=== PATIENT | male | born 1960 | race African-American/Black ===

== ENCOUNTER 2019-06-29 13:29 | Inpatient (IN) | payer MEDICAID, OTHER ==
[~2019-06-29] VITALS: Ht 175.3 cm; Wt 54.4 kg
[2019-06-29] MEDS ORDERED: SODIUM CHLORIDE 0.9% 1000ML BAG (SEPSIS BOLUS) IV ONE (14:15)
[2019-06-29] MEDS ORDERED: PIPERACILLIN/TAZ 3.375G PREMIX 50 ML IV ONE (14:30)
[2019-06-29] MEDS ORDERED: VANCOMYCIN 1 G PREMIX 200 ML IV ONE (14:30)
[2019-06-29 14:54] LABS: HEMATOCRIT. 36.8 % (42.0-52.0); HEMOGLOBIN. 11.9 g/dL (14.0-18.0); LYMPHOCYTES % 7.5 % (20.0-50.0); MEAN CORPUSCULAR HEMOGLOBIN 30.1 pg (28.0-32.0); MEAN CORPUSCULAR VOLUME 92.9 fL (80.0-94.0); MEAN PLATELET VOLUME 8.1 fl (7.4-10.4); MONOCYTES % 3.9 % (2.0-8.0); NEUTROPHILS % 88.6 % (40.0-76.0); PLATELET 137 x1000/uL (130-400); RED BLOOD CELL COUNT 3.97 mill/uL (4.7-6.1); RED CELL DISTRIBUTION WIDTH 18.7 % (11.6-14.6)
[2019-06-29 15:02] LABS: INR 1.1; PROTHROMBIN TIME 11.8 sec (9.6-11.0)
[2019-06-29 15:07] LABS: CHLORIDE 121 mEq/L (98-107)
[2019-06-29] MEDS ORDERED: SODIUM CHLORIDE 0.45% 1,000 ML IV ONE (15:45)
[2019-06-29] MEDS ORDERED: DEXTROSE 5% WATER 1,000 ML IV SCH (17:38)
[2019-06-29 17:45] LABS: CLARITY URINE CLEAR (CLEAR); COLOR URINE YELLOW (YELLOW); KETONES URINE NEGATIVE (NEGATIVE); LEUKOCYTE ESTERASE URINE NEGATIVE (NEGATIVE); NITRITE URINE NEGATIVE (NEGATIVE); OCCULT BLOOD URINE NEGATIVE (NEGATIVE); PROTEIN URINE NEGATIVE (NEGATIVE); SPECIFIC GRAVITY URINE 1.015 (1.005-1.030); UROBILINOGEN URINE 0.2 E.U./dL (0.2-1.0)
[2019-06-29] MEDS ORDERED: ONDANSETRON HCL 4MG/2ML INJ IV PRN (17:45)
[2019-06-29] MEDS ORDERED: PIPERACILLIN/TAZ 3.375G PREMIX 50 ML IV SCH (17:45)
[2019-06-29] MEDS ORDERED: IPRATROPIUM/ALBUTEROL 0.5-3(2.5)MG/3ML NEB HHN PRN (17:45)
[2019-06-29] MEDS ORDERED: CLONIDINE 0.1MG TABLET PO PRN (17:45)
[2019-06-29] MEDS ORDERED: DIPHENHYDRAMINE 50MG/ML VIAL IV PRN (17:45)
[2019-06-29 18:10] VITALS: BP 96/81
[2019-06-29 18:35] LABS: PHOSPHORUS 2.7 mg/dL (2.5-4.9)
[2019-06-29 19:33] VITALS: BP 106/88
[2019-06-29] MEDS ORDERED: DEXTROSE 50% WATER 50ML SYRINGE IV PRN (20:15)
[2019-06-29 20:50] VITALS: BP 95/69
[2019-06-29] MEDS: INSULIN LISPRO 100 UNITS/ML SUBCUT SCH (21:00)
[2019-06-29] MEDS: BLOOD SUGAR DIAGNOSTIC STRIP TEST SCH (21:26)
[2019-06-29] MEDS: POTASSIUM CHLORIDE INJ 20 MEQ in DEXT 5%/0.2% NACL 1,000 ML IV SCH (21:27)
[2019-06-29] MEDS: MORPHINE SULFATE 2 MG/ML CPJ (NOT FOR IM USE) IV PRN (21:29)
[2019-06-29 21:50] VITALS: BP 115/77
[2019-06-29] MEDS: PIPERACILLIN/TAZOBACTAM 3.375 G in DEXT 5% WATER 100 ML IV SCH (22:40)
[2019-06-29 23:15] VITALS: BP 115/77
[2019-06-29 23:50] VITALS: BP 117/81
[2019-06-30] VITALS (11 sets, daily range): BP systolic 108–135; BP diastolic 62–99
[2019-06-30] MEDS ORDERED: METH5TAB PO (03:42)
[2019-06-30] MEDS ORDERED: GABA300C PO (03:42)
[2019-06-30] MEDS: PIPERACILLIN/TAZOBACTAM 3.375 G in DEXT 5% WATER 100 ML IV SCH ×3 (05:45→21:23)
[2019-06-30] MEDS: BLOOD SUGAR DIAGNOSTIC STRIP TEST SCH ×4 (06:24→21:00)
[2019-06-30] MEDS: POTASSIUM CHLORIDE INJ 20 MEQ in DEXT 5%/0.2% NACL 1,000 ML IV SCH (06:38)
[2019-06-30 06:43] LABS: HEMOGLOBIN. 10.4 g/dL (14.0-18.0); MEAN CORPUSCULAR HEMOGLOBIN 30.2 pg (28.0-32.0); MEAN CORPUSCULAR VOLUME 92.9 fL (80.0-94.0); MEAN PLATELET VOLUME 8.4 fl (7.4-10.4); PLATELET 117 x1000/uL (130-400); RED BLOOD CELL COUNT 3.45 mill/uL (4.7-6.1); RED CELL DISTRIBUTION WIDTH 18.6 % (11.6-14.6)
[2019-06-30 06:47] LABS: CHLORIDE 122 mEq/L (98-107)
[2019-06-30 06:55] LABS: PHOSPHORUS 2.4 mg/dL (2.5-4.9)
[2019-06-30 06:57] LABS: LDL CHOLESTEROL 81 mg/dL (5-100)
[2019-06-30 06:58] LABS: HDL CHOLESTEROL 59 mg/dL (40-59)
[2019-06-30] MEDS: MORPHINE SULFATE 2 MG/ML CPJ (NOT FOR IM USE) IV PRN ×3 (08:05→21:22)
[2019-06-30] MEDS: INSULIN LISPRO 100 UNITS/ML SUBCUT SCH ×4 (08:07→21:00)
[2019-06-30] MEDS ORDERED: ENOXAPARIN 40MG/0.4ML SYR SUBCUT SCH (09:00)
[2019-06-30 10:16] LABS: PLATELET ESTIMATE DECREASED
[2019-06-30] MEDS: VANCOMYCIN 750 MG in DEXT 5% WATER 250 ML IV SCH (10:23)
[2019-06-30] MEDS ORDERED: PAMIDRONATE DISODIUM IV SCH (13:00)
[2019-06-30] MEDS ORDERED: WATER IV SCH (13:00)
[2019-06-30] MEDS ORDERED: DEXT 5% IV SCH (13:00)
[2019-06-30] MEDS ORDERED: POTASSIUM CHLORIDE INJ 20 MEQ in DEXT 5%/0.2% NACL 1,000 ML IV SCH (13:00)
[2019-07-01] VITALS (13 sets, daily range): BP systolic 106–121; BP diastolic 54–72
[2019-07-01] MEDS: POTASSIUM CHLORIDE INJ 20 MEQ in DEXT 5%/0.2% NACL 1,000 ML IV SCH ×3 (02:10→22:16)
[2019-07-01] MEDS: VANCOMYCIN 750 MG in DEXT 5% WATER 250 ML IV SCH ×2 (02:22→21:03)
[2019-07-01] MEDS: PIPERACILLIN/TAZOBACTAM 3.375 G in DEXT 5% WATER 100 ML IV SCH (05:14)
[2019-07-01] MEDS: MORPHINE SULFATE 2 MG/ML CPJ (NOT FOR IM USE) IV PRN (05:15)
[2019-07-01] MEDS: BLOOD SUGAR DIAGNOSTIC STRIP TEST SCH ×4 (06:26→21:03)
[2019-07-01 06:34] LABS: HEMATOCRIT. 29.2 % (42.0-52.0); HEMOGLOBIN. 9.5 g/dL (14.0-18.0); MEAN CORPUSCULAR VOLUME 92.4 fL (80.0-94.0); MEAN PLATELET VOLUME 8.7 fl (7.4-10.4); PLATELET 88 x1000/uL (130-400); RED BLOOD CELL COUNT 3.16 mill/uL (4.7-6.1); RED CELL DISTRIBUTION WIDTH 18.1 % (11.6-14.6)
[2019-07-01] MEDS: INSULIN LISPRO 100 UNITS/ML SUBCUT SCH ×4 (07:20→21:00)
[2019-07-01 07:56] LABS: CHLORIDE 117 mEq/L (98-107)
[2019-07-01 08:05] LABS: PHOSPHORUS 1.9 mg/dL (2.5-4.9)
[2019-07-01] MEDS ORDERED: ENOXAPARIN 30MG/0.3ML SYR SUBCUT SCH (09:00)
[2019-07-01 10:06] LABS: *CREATININE RANDOM URINE 54.2 mg/dL (Not Estab.); MICROALBUMIN RANDOM URINE 14.5 ug/mL (Not Estab.)
[2019-07-01 10:33] LABS: PLATELET ESTIMATE DECREASED
[2019-07-01] MEDS: CEFEPIME 2,000 MG in DEXT 5% WATER 100 ML IV SCH (12:24)
[2019-07-01 12:35] LABS: CHLORIDE 116 mEq/L (98-107)
[2019-07-01 13:30] LABS: MEAN CORPUSCULAR HEMOGLOBIN 29.6 pg (28.0-32.0); MEAN CORPUSCULAR VOLUME 92.3 fL (80.0-94.0); MEAN PLATELET VOLUME 8.1 fl (7.4-10.4); PLATELET 76 x1000/uL (130-400); RED BLOOD CELL COUNT 3.03 mill/uL (4.7-6.1); RED CELL DISTRIBUTION WIDTH 17.9 % (11.6-14.6)
[2019-07-01 13:45] LABS: PLATELET ESTIMATE DECREASED
[2019-07-01] MEDS: IPRATROPIUM/ALBUTEROL 0.5-3(2.5)MG/3ML NEB HHN SCH (20:05)
[2019-07-02] VITALS (11 sets, daily range): BP systolic 107–131; BP diastolic 65–81
[2019-07-02] MEDS: IPRATROPIUM/ALBUTEROL 0.5-3(2.5)MG/3ML NEB HHN SCH ×2 (03:58→15:22)
[2019-07-02] MEDS: BLOOD SUGAR DIAGNOSTIC STRIP TEST SCH ×4 (06:26→21:21)
[2019-07-02] MEDS: INSULIN LISPRO 100 UNITS/ML SUBCUT SCH ×4 (07:20→21:20)
[2019-07-02 08:47] LABS: BASOPHILS % 0.1 % (0.0-2.0); EOSINOPHILS % 0.8 % (0.0-5.0); HEMATOCRIT. 28.5 % (42.0-52.0); HEMOGLOBIN. 9.3 g/dL (14.0-18.0); LYMPHOCYTES % 7.3 % (20.0-50.0); MEAN CORPUSCULAR VOLUME 91.7 fL (80.0-94.0); MEAN PLATELET VOLUME 8.7 fl (7.4-10.4); MONOCYTES % 6.1 % (2.0-8.0); NEUTROPHILS % 85.7 % (40.0-76.0); PLATELET 77 x1000/uL (130-400); RED BLOOD CELL COUNT 3.11 mill/uL (4.7-6.1); RED CELL DISTRIBUTION WIDTH 18.6 % (11.6-14.6)
[2019-07-02 08:53] LABS: CHLORIDE 112 mEq/L (98-107)
[2019-07-02] MEDS ORDERED: CALCITONIN SALMON IM SCH (09:00)
[2019-07-02] MEDS: POTASSIUM CHLORIDE INJ 20 MEQ in DEXT 5%/0.2% NACL 1,000 ML IV SCH ×2 (11:30→20:45)
[2019-07-02] MEDS: CEFEPIME 2,000 MG in DEXT 5% WATER 100 ML IV SCH (12:38)
[2019-07-02 16:31] LABS: CLARITY URINE CLEAR (CLEAR); COLOR URINE YELLOW (YELLOW); KETONES URINE NEGATIVE (NEGATIVE); LEUKOCYTE ESTERASE URINE NEGATIVE (NEGATIVE); NITRITE URINE NEGATIVE (NEGATIVE); OCCULT BLOOD URINE NEGATIVE (NEGATIVE); PH URINE 5.5 (4.5-8.0); PROTEIN URINE NEGATIVE (NEGATIVE); SPECIFIC GRAVITY URINE 1.009 (1.005-1.030); UROBILINOGEN URINE 0.2 E.U./dL (0.2-1.0)
[2019-07-02] MEDS ORDERED: SIMETHICONE 80MG TABLET CHEW PO PRN (17:30)
[2019-07-02] MEDS: PSYLLIUM SEED PACKET PO SCH (19:56)
[2019-07-03] VITALS (20 sets, daily range): BP systolic 110–144; BP diastolic 64–78
[2019-07-03] MEDS: IPRATROPIUM/ALBUTEROL 0.5-3(2.5)MG/3ML NEB HHN SCH ×3 (02:10→13:21)
[2019-07-03] MEDS: POTASSIUM CHLORIDE INJ 20 MEQ in DEXT 5%/0.2% NACL 1,000 ML IV SCH (05:57)
[2019-07-03] MEDS: BLOOD SUGAR DIAGNOSTIC STRIP TEST SCH ×4 (06:50→20:12)
[2019-07-03] MEDS: PSYLLIUM SEED PACKET PO SCH ×3 (08:36→16:14)
[2019-07-03] MEDS: INSULIN LISPRO 100 UNITS/ML SUBCUT SCH ×4 (08:46→20:12)
[2019-07-03 09:57] LABS: BASOPHILS % 0.1 % (0.0-2.0); EOSINOPHILS % 0.3 % (0.0-5.0); HEMATOCRIT. 28.2 % (42.0-52.0); HEMOGLOBIN. 9.3 g/dL (14.0-18.0); LYMPHOCYTES % 10.5 % (20.0-50.0); MEAN CORPUSCULAR HEMOGLOBIN 30.1 pg (28.0-32.0); MEAN CORPUSCULAR VOLUME 91.3 fL (80.0-94.0); MEAN PLATELET VOLUME 9.2 fl (7.4-10.4); MONOCYTES % 5.3 % (2.0-8.0); NEUTROPHILS % 83.8 % (40.0-76.0); PLATELET 83 x1000/uL (130-400); RED BLOOD CELL COUNT 3.09 mill/uL (4.7-6.1); RED CELL DISTRIBUTION WIDTH 17.8 % (11.6-14.6)
[2019-07-03 10:04] LABS: CHLORIDE 113 mEq/L (98-107)
[2019-07-03 10:28] LABS: PHOSPHORUS 0.9 mg/dL (2.5-4.9)
[2019-07-03] MEDS: CEFEPIME 2,000 MG in DEXT 5% WATER 100 ML IV SCH (12:39)
[2019-07-03] MEDS: DEXT 5%/0.2% NACL KCL 20MEQ/L 1,000 ML IV SCH (18:56)
[2019-07-03] MEDS: MIRTAZAPINE 15MG TABLET PO SCH (20:15)
[2019-07-04] VITALS (14 sets, daily range): BP systolic 104–136; BP diastolic 65–111
[2019-07-04] MEDS: DEXT 5%/0.2% NACL KCL 20MEQ/L 1,000 ML IV SCH ×3 (02:00→22:22)
[2019-07-04] MEDS: BLOOD SUGAR DIAGNOSTIC STRIP TEST SCH ×4 (05:22→21:00)
[2019-07-04 06:29] LABS: BASOPHILS % 0.1 % (0.0-2.0); EOSINOPHILS % 0.1 % (0.0-5.0); HEMATOCRIT. 30.2 % (42.0-52.0); HEMOGLOBIN. 10.1 g/dL (14.0-18.0); LYMPHOCYTES % 10.1 % (20.0-50.0); MEAN CORPUSCULAR HEMOGLOBIN 30.2 pg (28.0-32.0); MEAN CORPUSCULAR VOLUME 90.3 fL (80.0-94.0); MEAN PLATELET VOLUME 8.5 fl (7.4-10.4); MONOCYTES % 6.7 % (2.0-8.0); PLATELET 88 x1000/uL (130-400); RED BLOOD CELL COUNT 3.35 mill/uL (4.7-6.1)
[2019-07-04 06:31] LABS: CHLORIDE 116 mEq/L (98-107)
[2019-07-04 06:38] LABS: PHOSPHORUS 1.2 mg/dL (2.5-4.9)
[2019-07-04] MEDS: INSULIN LISPRO 100 UNITS/ML SUBCUT SCH ×4 (07:20→21:00)
[2019-07-04] MEDS: PSYLLIUM SEED PACKET PO SCH ×3 (09:16→16:32)
[2019-07-04] MEDS: IPRATROPIUM/ALBUTEROL 0.5-3(2.5)MG/3ML NEB HHN SCH ×2 (10:15→20:05)
[2019-07-04] MEDS: CEFEPIME 2,000 MG in DEXT 5% WATER 100 ML IV SCH (11:48)
[2019-07-04] MEDS: ACETAMINOPHEN 325MG TABLET PO PRN (20:13)
[2019-07-04] MEDS: MIRTAZAPINE 15MG TABLET PO SCH (22:22)
[2019-07-05] VITALS (12 sets, daily range): BP systolic 98–129; BP diastolic 51–78
[2019-07-05] MEDS: IPRATROPIUM/ALBUTEROL 0.5-3(2.5)MG/3ML NEB HHN SCH ×4 (01:47→20:05)
[2019-07-05 06:43] LABS: BASOPHILS % 0.2 % (0.0-2.0); EOSINOPHILS % 0.2 % (0.0-5.0); HEMOGLOBIN. 9.8 g/dL (14.0-18.0); LYMPHOCYTES % 10.2 % (20.0-50.0); MEAN CORPUSCULAR HEMOGLOBIN 30.4 pg (28.0-32.0); MEAN CORPUSCULAR VOLUME 90.5 fL (80.0-94.0); MONOCYTES % 6.6 % (2.0-8.0); NEUTROPHILS % 82.8 % (40.0-76.0); PLATELET 96 x1000/uL (130-400); RED BLOOD CELL COUNT 3.21 mill/uL (4.7-6.1); RED CELL DISTRIBUTION WIDTH 18.2 % (11.6-14.6)
[2019-07-05] MEDS: BLOOD SUGAR DIAGNOSTIC STRIP TEST SCH ×4 (06:50→21:19)
[2019-07-05 06:57] LABS: CHLORIDE 115 mEq/L (98-107)
[2019-07-05] MEDS: DEXT 5%/0.2% NACL KCL 20MEQ/L 1,000 ML IV SCH ×2 (08:00→17:49)
[2019-07-05] MEDS: PSYLLIUM SEED PACKET PO SCH ×3 (09:06→17:00)
[2019-07-05] MEDS: ACETAMINOPHEN 325MG TABLET PO PRN ×2 (09:18→21:00)
[2019-07-05] MEDS: INSULIN LISPRO 100 UNITS/ML SUBCUT SCH ×4 (09:18→21:25)
[2019-07-05] MEDS: CEFEPIME 2,000 MG in DEXT 5% WATER 100 ML IV SCH (12:01)
[2019-07-05] MEDS: MIRTAZAPINE 15MG TABLET PO SCH (20:59)
[2019-07-06] VITALS (12 sets, daily range): BP systolic 92–107; BP diastolic 64–79
[2019-07-06] MEDS: IPRATROPIUM/ALBUTEROL 0.5-3(2.5)MG/3ML NEB HHN SCH ×4 (01:56→20:40)
[2019-07-06] MEDS: DEXT 5%/0.2% NACL KCL 20MEQ/L 1,000 ML IV SCH ×2 (04:00→17:35)
[2019-07-06] MEDS: BLOOD SUGAR DIAGNOSTIC STRIP TEST SCH ×4 (06:06→21:19)
[2019-07-06] MEDS: INSULIN LISPRO 100 UNITS/ML SUBCUT SCH ×4 (08:47→21:22)
[2019-07-06] MEDS: PSYLLIUM SEED PACKET PO SCH ×4 (08:59→17:00)
[2019-07-06] MEDS: CEFEPIME 2,000 MG in DEXT 5% WATER 100 ML IV SCH (13:12)
[2019-07-06] MEDS: MIRTAZAPINE 15MG TABLET PO SCH (21:19)
[2019-07-07] VITALS (12 sets, daily range): BP systolic 88–107; BP diastolic 61–73
[2019-07-07] MEDS: DEXT 5%/0.2% NACL KCL 20MEQ/L 1,000 ML IV SCH ×2 (02:43→11:39)
[2019-07-07] MEDS: IPRATROPIUM/ALBUTEROL 0.5-3(2.5)MG/3ML NEB HHN SCH ×2 (02:50→20:01)
[2019-07-07] MEDS: INSULIN LISPRO 100 UNITS/ML SUBCUT SCH ×4 (06:41→21:16)
[2019-07-07] MEDS: BLOOD SUGAR DIAGNOSTIC STRIP TEST SCH ×4 (06:41→20:46)
[2019-07-07] MEDS: PSYLLIUM SEED PACKET PO SCH ×3 (08:41→17:00)
[2019-07-07] MEDS: DEXT 5%/0.2% NACL 1,000 ML IV SCH (15:22)
[2019-07-07] MEDS: MIRTAZAPINE 15MG TABLET PO SCH (20:46)
[2019-07-08] VITALS (13 sets, daily range): BP systolic 91–111; BP diastolic 64–81
[2019-07-08] MEDS: IPRATROPIUM/ALBUTEROL 0.5-3(2.5)MG/3ML NEB HHN SCH ×3 (01:42→22:33)
[2019-07-08 06:30] LABS: BASOPHILS % 0.1 % (0.0-2.0); EOSINOPHILS % 0.4 % (0.0-5.0); HEMATOCRIT. 24.4 % (42.0-52.0); HEMOGLOBIN. 8.2 g/dL (14.0-18.0); LYMPHOCYTES % 9.2 % (20.0-50.0); MEAN CORPUSCULAR HEMOGLOBIN 30.5 pg (28.0-32.0); MEAN CORPUSCULAR VOLUME 91.3 fL (80.0-94.0); MEAN PLATELET VOLUME 8.3 fl (7.4-10.4); MONOCYTES % 6.6 % (2.0-8.0); NEUTROPHILS % 83.7 % (40.0-76.0); PLATELET 81 x1000/uL (130-400); RED BLOOD CELL COUNT 2.68 mill/uL (4.7-6.1); RED CELL DISTRIBUTION WIDTH 17.9 % (11.6-14.6)
[2019-07-08] MEDS: BLOOD SUGAR DIAGNOSTIC STRIP TEST SCH ×4 (06:45→20:27)
[2019-07-08 07:19] LABS: CHLORIDE 112 mEq/L (98-107)
[2019-07-08 08:13] LABS: PHOSPHORUS 0.8 mg/dL (2.5-4.9)
[2019-07-08] MEDS: PSYLLIUM SEED PACKET PO SCH ×3 (08:42→16:51)
[2019-07-08] MEDS: ACETAMINOPHEN 325MG TABLET PO PRN (08:42)
[2019-07-08] MEDS: INSULIN LISPRO 100 UNITS/ML SUBCUT SCH ×4 (08:43→21:00)
[2019-07-08] MEDS ORDERED: SODIUM PHOS,M-BASIC-D-BASIC 30 MM in DEXT 5% WATER 500 ML IV SCH (10:00)
[2019-07-08] MEDS: DEXT 5%/0.2% NACL 1,000 ML IV SCH ×3 (11:36→19:45)
[2019-07-08] MEDS: MIRTAZAPINE 15MG TABLET PO SCH (20:27)
[2019-07-09] VITALS (10 sets, daily range): BP systolic 94–105; BP diastolic 62–76
[2019-07-09] MEDS: IPRATROPIUM/ALBUTEROL 0.5-3(2.5)MG/3ML NEB HHN SCH ×3 (02:42→13:24)
[2019-07-09] MEDS: ACETAMINOPHEN 325MG TABLET PO PRN (05:49)
[2019-07-09 06:32] LABS: BASOPHILS % 0.2 % (0.0-2.0); EOSINOPHILS % 0.2 % (0.0-5.0); HEMATOCRIT. 23.6 % (42.0-52.0); LYMPHOCYTES % 9.5 % (20.0-50.0); MEAN CORPUSCULAR HEMOGLOBIN 30.3 pg (28.0-32.0); MEAN CORPUSCULAR VOLUME 89.2 fL (80.0-94.0); MEAN PLATELET VOLUME 8.3 fl (7.4-10.4); MONOCYTES % 6.3 % (2.0-8.0); NEUTROPHILS % 83.8 % (40.0-76.0); PLATELET 82 x1000/uL (130-400); RED BLOOD CELL COUNT 2.65 mill/uL (4.7-6.1); RED CELL DISTRIBUTION WIDTH 17.9 % (11.6-14.6)
[2019-07-09] MEDS: BLOOD SUGAR DIAGNOSTIC STRIP TEST SCH ×2 (06:41→11:50)
[2019-07-09 06:48] LABS: CHLORIDE 110 mEq/L (98-107)
[2019-07-09 06:59] LABS: PHOSPHORUS 1.9 mg/dL (2.5-4.9)
[2019-07-09] MEDS: INSULIN LISPRO 100 UNITS/ML SUBCUT SCH ×2 (07:20→13:11)
[2019-07-09] MEDS: PSYLLIUM SEED PACKET PO SCH ×2 (09:00→13:00)
[2019-07-09] MEDS: DEXT 5%/0.2% NACL 1,000 ML IV SCH (09:48)
[2019-07-09] MEDS ORDERED: FLUT1DIS3 INH (15:14)
[2019-07-09] MEDS ORDERED: ALBU18HF2 IH (15:14)
[2019-07-09] MEDS ORDERED: POTASSIUM PHOS,M-BASIC-D-BASIC 30 MMOL in SODIUM CHLORIDE 0.9% 500 ML IV NR (17:00)
== END 2019-07-09 18:22 | disposition home or self-care (01) | DRG 720 ==
LOC: ER 13:36 → 3WST 16:40 → EDBEDREQTM 16:50 → EDBEDREQ 16:50 → ENRESERV 17:16
PROVIDERS: ADMIT Internal Medicine; ATTEND Internal Medicine
DX: A41.9 Sepsis, unspecified organism (principal); N17.0 Acute kidney failure with tubular necrosis; G62.81 Critical illness polyneuropathy; G93.41 Metabolic encephalopathy; E43 Unspecified severe protein-calorie malnutrition; J96.10 Chronic respiratory failure, unspecified whether with hypoxia or hypercapnia; R64 Cachexia; I95.9 Hypotension, unspecified; J18.9 Pneumonia, unspecified organism; C78.7 Secondary malignant neoplasm of liver and intrahepatic bile duct; E11.22 Type 2 diabetes mellitus with diabetic chronic kidney disease; E87.2 Acidosis; E83.52 Hypercalcemia; E87.0 Hyperosmolality and hypernatremia; E86.0 Dehydration; N18.9 Chronic kidney disease, unspecified; F17.200 Nicotine dependence, unspecified, uncomplicated; N40.0 Benign prostatic hyperplasia without lower urinary tract symptoms; R62.7 Adult failure to thrive; D69.6 Thrombocytopenia, unspecified; C34.90 Malignant neoplasm of unspecified part of unspecified bronchus or lung; E83.42 Hypomagnesemia; R13.10 Dysphagia, unspecified; Z51.5 Encounter for palliative care; C34.91 Malignant neoplasm of unspecified part of right bronchus or lung; D64.9 Anemia, unspecified; G89.29 Other chronic pain; Z66 Do not resuscitate; E87.8 Other disorders of electrolyte and fluid balance, not elsewhere classified; Z92.3 Personal history of irradiation; Z85.118 Personal history of other malignant neoplasm of bronchus and lung; Z68.1 Body mass index [BMI] 19.9 or less, adult; Z83.3 Family history of diabetes mellitus; Z92.21 Personal history of antineoplastic chemotherapy; Z79.899 Other long term (current) drug therapy
CPT/HCPCS: 36415; 71045; 76770; 80048; 80053; 80061; 80202; 81003; 82043; 82570; 82962; 83036; 83605; 83735; 84100; 84145; 84300; 84443; 84484; 85025; 92610; 93005; 93970; 94640; 96361; 96365; 96367; 97116; 97162; 97166; 97530; 97535; 99285; J0692; J1650; J1815; J2270; J2430; J2543; J3370; J3480; J3490; J7040; J7060

== ENCOUNTER 2019-07-15 03:23 | Inpatient (IN) | payer MEDICAID, OTHER ==
[~2019-07-15] VITALS: Ht 188 cm; Wt 53.1 kg
[~2019-07-15 03:23] MED LIST: ALBU18HF2 IH; FLUT1DIS3 INH; GABA300C PO; METH5TAB PO
[2019-07-15] MEDS ORDERED: MORPHINE SULFATE 4 MG/ML CPJ (NOT FOR IM USE) IV ONE (03:45)
[2019-07-15 04:43] LABS: HEMATOCRIT 27.5 % (42.0-52.0); MEAN CORPUSCULAR HEMOGLOBIN 30.4 pg (28.0-32.0); MEAN CORPUSCULAR VOLUME 93.5 fL (80.0-94.0); PLATELET 81 x1000/uL (130-400); RED BLOOD CELL COUNT 2.95 mill/uL (4.7-6.1); RED CELL DISTRIBUTION WIDTH 19.5 % (11.6-14.6)
[2019-07-15 04:56] LABS: CHLORIDE 119 mEq/L (98-107)
[2019-07-15] MEDS ORDERED: SODIUM CHLORIDE 0.9% 1,000 ML IV ONE (05:45)
[2019-07-15 06:30] VITALS: BP 131/90
[2019-07-15] MEDS ORDERED: GUAIFENESIN 200MG/10ML SUGAR FREE UDC PO PRN (06:45)
[2019-07-15] MEDS ORDERED: NITROGLYCERIN 0.4MG TABLET SL SL PRN (06:45)
[2019-07-15] MEDS ORDERED: CLONIDINE 0.1MG TABLET PO PRN (06:45)
[2019-07-15] MEDS ORDERED: TRAMADOL 50MG TABLET PO PRN (06:45)
[2019-07-15] MEDS ORDERED: LORAZEPAM 0.5MG TABLET PO PRN (06:45)
[2019-07-15] MEDS ORDERED: ACETAMINOPHEN 325MG TABLET PO PRN (06:45)
[2019-07-15] MEDS ORDERED: ONDANSETRON HCL 4MG/2ML INJ IV PRN (06:45)
[2019-07-15] MEDS ORDERED: IPRATROPIUM/ALBUTEROL 0.5-3(2.5)MG/3ML NEB NEB PRN (06:45)
[2019-07-15] MEDS ORDERED: MAGNESIUM/ALUMINUM HYDROXIDE/SIMETHICONE 30ML UDC PO PRN (06:45)
[2019-07-15] MEDS ORDERED: ZOLPIDEM TARTRATE 5MG TABLET PO PRN ×2 (06:45→21:00)
[2019-07-15] MEDS ORDERED: KETOROLAC 15MG/ML VIAL IV PRN (07:15)
[2019-07-15 08:00] VITALS: BP 122/89
[2019-07-15] MEDS ORDERED: AZITHROMYCIN 500 MG in DEXT 5% WATER 250 ML IV SCH (08:00)
[2019-07-15 08:08] LABS: TOTAL IRON BINDING CAPACITY 157 ug/dL (250-450)
[2019-07-15 08:30] LABS: FOLIC ACID (FOLATE) SERUM 6.3 ng/mL (>5.38)
[2019-07-15] MEDS ORDERED: ZINC SULFATE 220 MG ( 50 ) CAPSULE PO SCH (09:00)
[2019-07-15] MEDS ORDERED: DUTASTERIDE 0.5MG CAPSULE PO SCH (09:00)
[2019-07-15] MEDS ORDERED: VANCOMYCIN 1,000 MG in DEXT 5% WATER 250 ML IV SCH (09:00)
[2019-07-15] MEDS: ASCORBIC ACID 500 MG TABLET PO SCH ×2 (09:30→22:47)
[2019-07-15 12:05] VITALS: BP 148/77
[2019-07-15] MEDS ORDERED: ENOXAPARIN 40MG/0.4ML SYR SUBCUT SCH (13:00)
[2019-07-15] MEDS: PIPERACILLIN/TAZ 3.375G PREMIX 50 ML IV SCH ×3 (13:50→22:48)
[2019-07-15] MEDS: SODIUM CHLORIDE 0.9% 1,000 ML IV SCH ×2 (13:50→22:47)
[2019-07-15] MEDS: GUAIFENESIN 200MG/10ML SUGAR FREE UDC PO SCH ×2 (13:54→22:47)
[2019-07-15] MEDS ORDERED: ATROPINE SULFATE 1% OPHTH 2ML SL ONE (14:00)
[2019-07-15 16:11] VITALS: BP 95/70
[2019-07-15] MEDS ORDERED: VANCOMYCIN 750 MG in DEXT 5% WATER 250 ML IV SCH (18:00)
[2019-07-15 20:00] VITALS: BP 93/72
== END 2019-07-15 22:52 | disposition expired | DRG 720 ==
LOC: ER 03:23 → 7EST 04:26 → ENRESERV 05:11
PROVIDERS: ADMIT Internal Medicine; ATTEND Internal Medicine
DX: A41.9 Sepsis, unspecified organism (principal); J96.00 Acute respiratory failure, unspecified whether with hypoxia or hypercapnia; E43 Unspecified severe protein-calorie malnutrition; G92 Toxic encephalopathy; J18.9 Pneumonia, unspecified organism; D69.6 Thrombocytopenia, unspecified; J90 Pleural effusion, not elsewhere classified; E83.52 Hypercalcemia; R13.10 Dysphagia, unspecified; E87.0 Hyperosmolality and hypernatremia; C34.92 Malignant neoplasm of unspecified part of left bronchus or lung; Z51.5 Encounter for palliative care; Z66 Do not resuscitate; E86.1 Hypovolemia; D64.9 Anemia, unspecified; E11.9 Type 2 diabetes mellitus without complications; Z92.21 Personal history of antineoplastic chemotherapy; Z87.891 Personal history of nicotine dependence; Z92.3 Personal history of irradiation; Z79.51 Long term (current) use of inhaled steroids; Z68.1 Body mass index [BMI] 19.9 or less, adult; Z20.828 Contact with and (suspected) exposure to other viral communicable diseases
CPT/HCPCS: 36415; 71045; 80053; 82607; 82746; 83036; 83540; 83550; 83605; 83615; 84145; 85027; 87635; 99291; J0456; J1650; J2270; J2543; J3370; J7030; J7060; U0002